=== PATIENT | female | born 1955 | race Caucasian/White ===

== ENCOUNTER → 2020-08-24 09:42 | Outpatient (CLI) | payer BC, SELFPAY ==
--- NOTE | ~2020-08-24 | MM_ITS ---
EXAMINATION: MM screening [facility] BI w malick HISTORY: Screening mammogram TECHNIQUE: Craniocaudal and mediolateral oblique 3-D tomosynthesis images were obtained and synthetic 2-D images were generated. CAD analysis was submitted and interpreted. COMPARISON: 04/25/2019, 12/31/2017, 12/06/2016 bilateral digital screening mammogram examinations BREAST PARENCHYMAL COMPOSITION: There are scattered areas of fibroglandular density. FINDINGS: There is no evidence of suspicious mass, calcification, or architectural distortion to sugg est malignancy in either breast. There has been no suspicious interval change. IMPRESSION: 1. No mammographic evidence of malignancy. 2. Recommend routine screening mammography in one year. BI-RADS Category 1: Negative Reviewed, dictated and finalized at location A. 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
== END ==
PROVIDERS: Visit Provider Nurse Practitioner
DX: Z12.31 Encounter for screening mammogram for malignant neoplasm of breast (principal)
CPT/HCPCS: 77063; 77067

== ENCOUNTER → 2022-04-04 13:14 | Outpatient (CLI) | payer BC, SELFPAY ==
--- NOTE | ~2022-04-04 | DEXA_ITS ---
Bone Density Report Name: KARSON SPAULDING Age: 66 Sex: Female Ethnicity: White Date of : 1955 Indication: monitoring treatment; height loss; rheumatoid arthritis; postmenopausal Referring Provider: Padmini Hugo Study: Bone densitometry was performed. Exam Date: April 04, 2022 Accession number: [id number] Bone Density: Region BMD T-score Z-score Classification AP Spine (L1-L4) 1.263 2.0 3.7 Normal Femoral Neck (Left) 0.815 -0.3 1.2 Normal Total Hip (Left) 0.952 0.1 1.3 Normal Femoral Neck (Right) 0.919 0.6 2.1 Normal Total Hip (Right) 0.875 -0.6 0.6 Normal Total Hip Mean 0.914 -0.3 1.0 Normal World Health Organization criteria for BMD impression classify patients as: Normal (T-score at or above -1.0), Osteopenia (T-score between -1.0 and -2.5), or Osteoporosis (T-score at or below -2.5). 10-year Fracture Risk: FRAX not reported because: All T-scores for Spine Total, Hip Total, Femoral Neck at or above -1.0 Treated for osteoporosis Previous Exams: Region Exam Age BMD T-score BMD Change BMD Change Date g/cm2 vs Baseline vs Previous AP Spine(L1-L4) 04/04/2022 66 1.263 2.0 0.075* 0.104* 09/20/2015 59 1.159 1.0 -0.029* -0.029* 06/26/2012 56 1.188 1.3 Total Hip(Left) 04/04/2022 66 0.952 0.1 -0.072* 0.016 04/25/2019 63 0.936 0.0 -0.087* -0.048* 09/20/2015 59 0.985 0.3 -0.039* -0.039* 06/26/2012 56 1.024 0.7 Total Hip(Right) 04/04/2022 66 0.875 -0.6 -0.087* 0.014 04/25/2019 63 0.860 -0.7 -0.102* 0.004 09/20/2015 59 0.857 -0.7 -0.105* -0.105* 06/26/2012 56 0.962 0.2 *Denotes significance at 95% confidence level, LSC for AP Spine = 0.022 g/cm2, LSC for Total Hip = 0.027 g/cm2 Clinical Information Provided by Patient: Has rheumatoid arthritis Is being treated for osteoporosis Has used the following medications: HRT (i.e. estrogen/hormone therapy), Vitamin D Patient maximum height was 61 Menopause Age: 55 No regular weight bearing exercise Drinks caffeinated beverages Onset of menses at age 14 Number of children 0 Impression: The patient has normal bone mass. No significant bone loss was observed. Discussion: PATIENT UNDER TREATMENT WITH NO SIGNIFICANT BMD LOSS SINCE LAST EXAM. In an untreated patient, BMD typically declines with age. A
--- NOTE | ~2022-04-04 | MM_ITS ---
EXAMINATION: MM screening [facility] BI w malick HISTORY: Screening TECHNIQUE: Craniocaudal and mediolateral oblique 3-D tomosynthesis images were obtained and synthetic 2-D images were generated. CAD analysis was submitted and interpreted. COMPARISON: Comparison to multiple prior studies sequentially, with oldest reviewed study dated 08/29. BREAST PARENCHYMAL COMPOSITION: There are scattered areas of fibroglandular density. FINDINGS: There is no evidence of suspicious mass, calcification, or architectural distortion to sugg est malignancy in either breast. There has been no suspicious interval change. IMPRESSION: 1. No mammographic evidence of malignancy. 2. Recommend routine screening mammography in one year. BI-RADS Category 1: Negative Reviewed, dictated and finalized at location A.
== END ==
PROVIDERS: PCP Family Medicine; Visit Provider Physician Assistant
DX: Z12.31 Encounter for screening mammogram for malignant neoplasm of breast (principal); Z78.0 Asymptomatic menopausal state
CPT/HCPCS: 77063; 77067; 77080

== ENCOUNTER 2023-02-12 12:38 | Outpatient (CLI) | payer MEDICARE, OTHER, SELFPAY ==
--- NOTE | ~2023-02-12 | MR_ITS ---
EXAMINATION: MR lumbar spine wo con DATE: 02/12/2023 13:35 INDICATION: Radiculopathy, lumbar region. TECHNIQUE: Magnetic resonance imaging (MRI) of the lumbar spine was performed without intravenous con trast. Sequences included sagittal T2-weighted FSE, sagittal T2-weighted FS FSE, sagittal T1-weighted FSE, and axial T2-weighted FSE. COMPARISON: Lumbar spine MRI 09/17/2018 FINDINGS: There is 12 degrees levoscoliosis of lumbar spine. There are chronic bilateral L5 pars defe cts. There is 4 mm retrolisthesis of L2 on L3 and L3 on L4 and 7 mm anterolisthesis of L5 on S1. Ther e is chronic 2/5 height loss of L5 vertebral body posteriorly. There is mild chronic anterior wedging of T11 vertebral body. There is severely decreased disc height from T12-L1 through L5-S1 with endpla te remodeling. The distal spinal cord signal intensity is normal. The conus medullaris is at L1. Epid ural lipomatosis is noted. The following disc levels are specifically discussed: T12-L1: The disc is bulging. There is mild bilateral facet joint osteoarthritis. There is mild bilate ral neural foraminal stenosis. There is mild central canal stenosis. L1-L2: The disc is bulging and has an annular fissure. There is moderate right and severe left facet joint osteoarthritis. There is moderate right and mild left neural foraminal stenosis. There is mild central canal stenosis. L2-L3: The disc is bulging and has an annular fissure. There is mild bilateral facet joint osteoarthr itis. There is mild bilateral neural foraminal stenosis. There is moderate central canal stenosis. L3-L4: The disc is bulging and has an annular fissure. There is moderate bilateral facet joint osteoa rthritis. There is moderate bilateral neural foraminal stenosis. There is moderate central canal sten osis. L4-L5: The disc is bulging and has an annular fissure. There is mild bilateral facet joint osteoarthr itis. There is mild right and moderate left neural foraminal stenosis. There is mild central canal st enosis. L5-S1: The disc is bulging. There is mild bilateral facet joint osteoarthritis. There is moderate rig ht and severe left neural foraminal stenosis. There is no central canal stenosis. IMPRESSION: 1. Severe lumbar spondylosis, stable from 09/17/2018. 2. Chronic bilateral L5 pars defects with grade 2 anterolisthesis of L5 on S1. Reviewed, dictated and finalized at location A.
--- NOTE | ~2023-02-12 | XR_ITS ---
EXAMINATION: XR cervical spine 4-5V DATE: 02/12/2023 13:58 INDICATION: Posterior neck pain. TECHNIQUE: 4 views of cervical spine were obtained. COMPARISON: Cervical spine radiographs 10/21/2019 FINDINGS: There is kyphosis of cervical spine. There are 2 mm retrolisthesis of C4 on C5 and C6 on C7 . There are changes of posterior fusion procedure from C3 to C5 with lateral mass screws in C3 and C5 . Vertebral body heights are normal. There is severely decreased disc height at C3-C4 with interbody fusion. There is moderately decreased disc height at C4-C5 and C5-C6 and severely decreased disc heig ht at C6-C7. There is multilevel mild to moderate facet joint osteoarthritis. There is multilevel unc overtebral joint osteoarthritis, severe bilaterally at C6-C7. There is mild central canal stenosis at C3-C4 and C6-C7. No prevertebral soft tissue swelling. IMPRESSION: 1. Severe cervical spondylosis. 2. Posterior fusion procedure from C3 to C5. Reviewed, dictated and finalized at location A.
--- NOTE | ~2023-02-12 | XR_ITS ---
XR shoulder RT min 2V 02/12/2023 13:58 Indication: Right shoulder pain Procedure: 4 views right shoulder Comparison: No prior studies for comparison. Findings: There is mild polyarticular osteoarthritis of the right shoulder. Osteopenia. Visualized james ng parenchyma is unremarkable. No acute fracture or traumatic malalignment. Impression: 1: Mild polyarticular osteoarthritis. Reviewed, dictated and finalized at location L. Impression: 1: Mild polyarticular osteoarthritis.
== END 2023-02-12 12:39 | disposition home or self-care (01) ==
PROVIDERS: PCP Family Medicine; Visit Provider Family Medicine
DX: M47.892 Other spondylosis, cervical region (principal); Z98.1 Arthrodesis status; M19.011 Primary osteoarthritis, right shoulder; M47.26 Other spondylosis with radiculopathy, lumbar region
CPT/HCPCS: 72050; 72148; 73030

== ENCOUNTER → 2023-08-28 13:29 | Outpatient (CLI) | payer MEDICARE, OTHER, SELFPAY ==
--- NOTE | ~2023-08-28 | MM_ITS ---
EXAMINATION: MM screening [facility] BI w malick HISTORY: Screening mammogram TECHNIQUE: Craniocaudal and mediolateral oblique 3-D tomosynthesis images were obtained and synthetic 2-D images were generated. CAD analysis was submitted and interpreted. COMPARISON: 04/04/2022, 08/24/2020 bilateral screening mammogram examinations BREAST PARENCHYMAL COMPOSITION: There are scattered areas of fibroglandular density. FINDINGS: There is no evidence of suspicious mass, calcification, or architectural distortion to sugg est malignancy in either breast. There has been no suspicious interval change. IMPRESSION: 1. No mammographic evidence of malignancy. 2. Recommend routine screening mammography in one year. BI-RADS Category 1: Negative.. Reviewed, dictated and finalized at location A. 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
== END ==
PROVIDERS: PCP Family Medicine; Visit Provider Family Medicine
DX: Z12.31 Encounter for screening mammogram for malignant neoplasm of breast (principal)
CPT/HCPCS: 77063; 77067

== ENCOUNTER 2024-08-30 13:29 | Outpatient (CLI) | payer MEDICARE, OTHER, SELFPAY ==
--- NOTE | ~2024-08-30 | US_ITS ---
EXAMINATION: US soft tissue head and neck DATE: 08/30/2024 13:47 INDICATION: Localized swelling, mass and lump, neck. TECHNIQUE: Multiple grayscale and Doppler ultrasound images of the head and neck were obtained. COMPARISON: Cervical spine MRI 09/17/2018 FINDINGS: There is a normal lymph node in the left supraclavicular region and the patient's area of c oncern. IMPRESSION: 1. No abnormal mass or lymphadenopathy in left supraclavicular region in the patient's area of concer n. Reviewed, dictated and finalized at location A. 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 No abnormal mass or lymphadenopathy in left supraclavicular region in the pa tient's area of concern.
--- NOTE | ~2024-08-30 | MM_ITS ---
EXAMINATION: MM screening [facility] BI w malick HISTORY: Screening TECHNIQUE: Craniocaudal and mediolateral oblique 3-D tomosynthesis images were obtained and synthetic 2-D images were generated. CAD analysis was submitted and interpreted. COMPARISON: Comparison to multiple prior studies sequentially, with oldest reviewed study dated 12/06. BREAST PARENCHYMAL COMPOSITION: Not dense: There are scattered areas of fibroglandular density. FINDINGS: There is no evidence of suspicious mass, calcification, or architectural distortion to sugg est malignancy in either breast. There has been no suspicious interval change. IMPRESSION: 1. No mammographic evidence of malignancy. 2. Recommend routine screening mammography in one year. BI-RADS Category 1: Negative Reviewed, dictated and finalized at location B. N FEED ATTENDANT
== END 2024-08-30 13:30 | disposition home or self-care (01) ==
LOC: MICIMG 13:30
PROVIDERS: PCP Family Medicine; Visit Provider Family Medicine
DX: Z12.31 Encounter for screening mammogram for malignant neoplasm of breast (principal); R22.1 Localized swelling, mass and lump, neck
CPT/HCPCS: 76536; 77063; 77067

== ENCOUNTER 2025-09-01 14:31 | Outpatient (CLI) | payer MEDICARE, OTHER, SELFPAY ==
--- NOTE | ~2025-09-01 | MM_ITS ---
EXAMINATION: MM screening [facility] BI w malick HISTORY: Screening. TECHNIQUE: Craniocaudal and mediolateral oblique 3-D tomosynthesis images were obtained and synthetic 2-D images were generated. CAD analysis was submitted and interpreted. COMPARISON: 2023, 2022, and 2021 BREAST PARENCHYMAL COMPOSITION: Not Dense: The breasts are almost entirely fatty FINDINGS: No suspicious masses are seen. There are no suspicious calcifications. No unexplained architectural distortion is seen. There are no skin or nipple abnormalities identified. There is no adenopathy seen on the images submitted. IMPRESSION: No mammographic or sonographic evidence to suggest malignancy is seen. The patient may return to screening mammography as per ACR guidelines. BI-RADS 1 - Negative. Reviewed, dictated and finalized at location B. RER SAWMILL IMPRESSION: No mammographic or sonographic evidence to suggest malignancy is seen. The mariah ent may return to screening mammography as per ACR guidelines. BI-RADS 1 - Negative.
== END 2025-09-01 14:32 | disposition home or self-care (01) ==
LOC: MICIMG 14:32
PROVIDERS: PCP Family Medicine; Visit Provider Family Medicine
DX: Z12.31 Encounter for screening mammogram for malignant neoplasm of breast (principal)
CPT/HCPCS: 77063; 77067